=== PATIENT | female | born 1960 | race Caucasian/White ===

== ENCOUNTER 2021-07-03 20:25 | Emergency (ER) | payer OTHER ==
--- NOTE | 2021-07-03 21:58 | ERPHSYRPT ---
- History of Present Illness Time Seen by Provider: 07/03/21 21:00 Source: patient Exam Limitations: no limitations Patient Subjective Stated Complaint: pt states "I was at work and fell on a concrete ledge." Triage Nursing Assessment: pt ambulated into the er; pt is axo x4; c/o rt arm injury from fall; pt is favoring rt arm; pt states 10/10 pain to rt upper; pt grabbing/ holding rt arm; pt states she fell and hit her arm on concrete on the way down; no deformity present to RUE; strong rt radial pulse; good cap refill to RUE; limited ROM to RUE; pt states tingling in rt hand; vitals wnl Physician History: This is a right-handed 60-year-old female who was at work and fell onto a concrete leg hitting her right shoulder and right upper arm. She did not hit her head. She has no neck pain. She did not lose consciousness. Occurred: just prior to arrival Reason for Fall: lost balance Injuries/Pain Location: upper extremity (Right shoulder and right upper arm) Loss of Consciousness: no loss of consciousness Quality: aching Severity of Pain-Max: moderate Severity of Pain-Current: moderate Allergies/Adverse Reactions: No Known Drug Allergies Allergy (Unverified 07/03/21 20:33) Hx Tetanus, Diphtheria Vaccination/Date Given: No Hx Influenza Vaccination/Date Given: No Hx Pneumococcal Vaccination/Date Given: No Travel Risk - International Travel Have you traveled outside of the country in past 3 weeks: No - Coronavirus Screening Are you exhibiting any of the following symptoms?: No Close contact with a COVID-19 positive Pt in past 14-21 Days: No - Vaccine Status Have you recieved a Covid-19 vaccination: 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[employer]: [employer] - Vaccination Dates Date of 2cond Vaccination (if applicable): 12/24/20 - Review of Systems Constitutional: No Symptoms Eyes: No Symptoms Ears, Nose, & Throat: No Symptoms Respiratory: No Symptoms Cardiac: No Symptoms Abdominal/Gastrointestinal: No Symptoms Genitourinary Symptoms: No Symptoms Musculoskeletal: Fall, Injury Skin: No Symptoms (Pain right shoulder right upper arm) Neurological: No Symptoms Psychological: No Symptoms Endocrine: No Symptoms Hematologic/Lymphatic: No Symptoms Immunological/Allergic: No Symptoms All Other Systems: Reviewed and Negative - Past Medical History Pertinent Past Medical History: No - Past Surgical History Past Surgical History: Yes Gastrointestinal: Cholecystectomy - Social History Smoking Status: Never smoker Exposure to second hand smoke: No Drug Use: none Patient Lives Alone: No - Nursing Vital Signs Nursing Vital Signs: Initial Vital Signs Temperature 99 F 07/03/21 20:35 Pulse Rate 71 07/03/21 20:35 Respiratory Rate 20 07/03/21 20:35 Blood Pressure 132/79 07/03/21 20:35 O2 Sat by Pulse Oximetry 99 07/03/21 20:35 Pain Scale Pain Intensity 6 - Laughlin Coma Score Best Eye Response (Teressa): (4) open spontaneously Best Verbal Response (Teressa): (5) oriented Best Motor Response (Teressa): (6) obeys commands Teressa Total: 15 - Physical Exam General Appearance: no apparent distress, alert, anxiety, obese Head Injury: no evidence of injury Eye Exam: PERRL/EOMI, eyes nml inspection ENT Exam: airway nml Neck Exam: supple, trachea midline, full range of motion, normal alignment, normal inspection Respiratory/Chest Exam: normal breath sounds, No chest tenderness, No respiratory distress, No ecchymosis, No crepitus Cardiovascular Exam: normal heart sounds, regular rate/rhythm, murmur Gastrointestinal Exam: No tenderness Rectal Exam: No not done Back Exam: normal inspection, normal range of motion, No CVA tenderness, No vertebral tenderness Extremity Exam: limited range of motion, bony point tenderness (Right proximal humerus), tenderness (Right shoulder right proximal humerus) Neurologic Exam: alert, oriented x 3, cooperative, director international II-XII nml as tested, normal mood/affect, nml cerebellar function, nml station & gait, sensation nml Skin Exam: normal color, warm, dry SpO2 Interpretation: normal SpO2: 98 O2 Delivery: Room Air Procedures - Joint Reduction Time of Procedure: 23:15 Timeout: Performed Joint Reduction Site: Right, shoulder Conscious Sedation: Yes Reduction Attempts: 1 Pre-Procedure Neurovascular Exam: neurovascular intact, well perfused, no neuro deficit Post Procedure Neurovascular Exam: neurovascular intact, good alignment Post Joint Reduction Film: fracture seen Progress: Fracture was present prior to reduction of right shoulder dislocation. - Course Nursing assessment & vital signs reviewed: Yes Ordered Tests: Active Orders 24 hr Category Date Time Status HUMERUS Stat Exams 07/03/21 20:40 Taken SHOULDER Routine Exams 07/03/21 23:38 Taken SHOULDER Stat Exams 07/03/21 20:40 Taken Medication Summary Discontinued Medications Generic Name Dose Route Start Last Admin Trade Name Apolonia PRN Reason Stop Dose Admin Etomidate 10 mg 07/03/21 23:08 07/03/21 23:18 Amidate 20 Mg/10 Ml IV 07/03/21 23:09 10 mg STAT ONE Administration Etomidate 15 mg 07/03/21 23:24 07/03/21 23:43 Amidate 20 Mg/10 Ml IV 07/03/21 23:25 5 mg STAT ONE Administration Hydromorphone HCl Confirm 07/03/21 23:03 Hydromorphone 1 Mg/Ml Injection Administered 07/03/21 23:04 Dose 1 mg .ROUTE .STK-MED ONE Hydromorphone HCl 1 mg 07/03/21 23:09 07/03/21 23:16 Hydromorphone 1 Mg/Ml Injection IV 07/03/21 23:10 1 mg STAT ONE Administration Ondansetron HCl Confirm 07/03/21 23:03 Zofran 4 Mg/2 Ml Vial Administered 07/03/21 23:04 Dose 4 mg .ROUTE .STK-MED ONE Ondansetron HCl 4 mg 07/03/21 23:08 07/03/21 23:15 Zofran 4 Mg/2 Ml Vial IV 07/03/21 23:09 4 mg STAT ONE Administration Oxycodone/Acetaminophen 2 tab 07/03/21 23:48 07/03/21 23:59 Percocet Tablet 5/325mg PO 07/03/21 23:49 2 tab SENT HOME W/ PATIENT STA Administration Oxycodone/Acetaminophen Confirm 07/03/21 23:58 Percocet Tablet 5/325mg Administered 07/03/21 23:59 Dose 2 tab .ROUTE .STK-MED ONE - Progress Progress: improved, pain not gone completely, re-examined Progress Note: 07/03/21 21:58 X-ray right shoulder and right humerus shows a greater tuberosity/proximal humeral head fracture with anterior dislocation present before reduction attempted. 07/04/21 00:10 Post reduction films show successful reduction of right shoulder dislocation. There also appears to be improvement of the proximal humeral fracture Counseled pt/family regarding: diagnosis, need for follow-up, rad results - Departure Departure Disposition: Home Clinical Impression: Fracture of humerus, right, closed, Dislocation of right shoulder joint Condition: Stable Critical Care Time: No Referrals: LIDA KOO, CAN PILER [Primary Care Provider] - Additional Instructions: Take your medication as prescribed. May apply ice pack to area 3 times a day for the next 48 hours. Call your orthopedic surgeon later this morning to make arrangements for follow-up appointment and definitive care. Prescriptions: Oxycodone HCl/Acetaminophen [Percocet 5-325 mg Tablet] 1 each PO Q8H PRN PRN #6 tablet MDD 3 PRN Reason: Pain
[2021-07-03] MEDS ORDERED: Zofran 4 MG/2 ML VIAL ONE (23:03)
[2021-07-03] MEDS ORDERED: Hydromorphone 1 mg/ml Injection ONE (23:03)
[2021-07-03] MEDS ORDERED: Zofran 4 MG/2 ML VIAL IV ONE (23:08)
[2021-07-03] MEDS ORDERED: Amidate 20 MG/10 ML IV ONE ×2 (23:08→23:24)
[2021-07-03] MEDS ORDERED: Hydromorphone 1 mg/ml Injection IV ONE (23:09)
[2021-07-03] MEDS ORDERED: PERCOCET TABLET 5/325MG PO STA (23:48)
[2021-07-03] MEDS ORDERED: PERCOCET TABLET 5/325MG ONE (23:58)
[2021-07-04] MEDS ORDERED: ZOFRAN ODT 4 MG ONE (00:05)
[2021-07-04] MEDS ORDERED: ZOFRAN ODT 4 MG PO ONE (00:05)
[2021-07-04 00:07] VITALS: BP 123/69; PULSE 68
[2021-07-04 00:09] VITALS: O2SAT 98
--- NOTE | 2021-07-04 09:03 | XRAY ---
Indication: Pain following fall. Comparison: None AP and scapular Y view right shoulder demonstrates mildly displaced humeral head fracture and anterior inferior humeral head dislocation. Elsewhere osteopenia and mild AC degenerative arthropathy.
--- NOTE | 2021-07-04 09:05 | XRAY ---
Indication: Pain following fall. Comparison: None 2 view right humerus demonstrates mildly displaced humeral head fracture and anterior inferior humeral head dislocation. Elsewhere osteopenia and mild AC degenerative arthropathy.
--- NOTE | 2021-07-04 09:05 | XRAY ---
Indication: Postreduction. Comparison: Taken earlier in the day. Single AP right shoulder demonstrates successful reduction of humeral head dislocation. Stable displaced humeral head fracture, osteopenia, and AC degenerative arthropathy.
== END 2021-07-04 00:30 | disposition home or self-care (01) ==
LOC: ED 20:25
DX: S42.251A Displaced fracture of greater tuberosity of right humerus, initial encounter for closed fracture (principal); W18.39XA Other fall on same level, initial encounter; Y92.69 Other specified industrial and construction area as the place of occurrence of the external cause; Y99.0 Civilian activity done for income or pay
CPT/HCPCS: 23665; 36000; 73030; 73060; 94799; 96374; 96375; 96376; 99284; J1170; J2405; Q0162; A9270-GY